=== PATIENT | male | born 1965 | race Caucasian/White ===

== ENCOUNTER 2021-12-18 17:24 | Observation (INO) ==
[2021-12-18] MEDS ORDERED: morphine 2 MG/ML VIAL IV ONE (18:01)
[2021-12-18] MEDS ORDERED: ONDANSETRON 4 MG/2 ML VIAL IV ONE (18:01)
[2021-12-18] MEDS ORDERED: PHENobarb/HYOSCY/ATROPINE/SCOP 1 DOSE BOTTLE PO ONE (18:01)
--- NOTE | 2021-12-18 18:01 | Emergency Department Note ---
Abdominal Pain HPI General Chief Complaint: Abdominal Pain Stated Complaint: gall bladder Time Seen by Provider: 12/18/21 17:29 Source: patient Mode of arrival: ambulatory Limitations: no limitations History of Present Illness HPI Narrative: Narrative: 55-year-old male presents the ER to be evaluated for right upper quadrant pain. He states he saw his primary care provider Dr. Plunkett about 3 weeks ago for this. He had an ultrasound that said his gallbladder was packed with sludge and he needed urgent surgery. Referral was placed to Dr. Turner but he never had any follow-up or reach out from the office. He has been waiting for a referral. He said today the pain got so bad that he decided to come in for further evaluation. He has had intermittent vomiting sometimes while he is asleep. He states he has bad reflux and has had burning in his chest. He denies chest pressure. He has a history of myocardial bridging surgery done at [place] via an open heart procedure. He has a pacemaker in place. He has a history of GERD, complex regional pain syndrome and hypertension. He also has a history of anxiety. He takes no meds currently. He denies fever, chills, body aches, chest pain, chest pressure and is mainly here for right upper quadrant abdominal pain and reflux. Related Data Home Medications Medication Instructions Recorded Confirmed No Known Home Meds 12/18/21 12/18/21 Allergies Allergy/AdvReac Type Severity Reaction Status Date / Time No Known Drug Allergies Allergy Verified 12/18/21 17:28 Review of Systems ROS ROS Narrative: Narrative: All systems ED: reviewed and negative except as stated. [facility] Narrative Patient History Narrative: Narrative: Medical/Surgical/Family History All Active Problems (Updated 12/18/21 @ 19:41 by Luis Fernando Acuña PA-C) Cholecystitis (Acute) Complex regional pain syndrome i of left upper limb (Acute) Chronic pain (Chronic) GERD (gastroesophageal reflux disease) (Chronic) Obesity (Chronic) Hypertension (Chronic) Anxiety (Chronic) Presence of cardiac pacemaker (Chronic) Left shoulder pain (Chronic) Medical History Anxiety Chronic pain Complex regional pain syndrome i of left upper limb GERD (gastroesophageal reflux disease) Hypertension Left shoulder pain Obesity Presence of cardiac pacemaker Surgical History History of appendectomy History of arthroplasty of left shoulder (~09/02/21) History of heart surgery History of neck surgery anterior cervical decompression & fusion History of rotator cuff surgery and biceps tendon repair - left Family History Father Osteoarthritis Osteoporosis Rheumatoid arthritis Heart attack Alcohol abuse Chronic pain Mother Anemia Chronic pain Hypertension Brother Alcohol abuse Chronic pain Social History Smoking Status: Former smoker Alcohol Intake Frequency: 2+ drinks per day Substance Use: does not use Exam Narrative Narrative: Narrative: Gen: No acute distress Eyes: PERRL, no conjunctival injection , and symmetrical lids. Sclerae non icteric HENMT: Normocephalic Atraumatic head, external nose and ears. Moist MM. CVS: +S1/S2, No murmurs or gallops. Radial pulses 2+ and equal bilat. No swelling RESP: Unlabored respiratory effort . Clear to auscultation bilaterally (CTAB). No noted wheezes rales or ronchi. GI: Right upper quadrant tenderness with guarding, mild distention, no focal peritonitis Skin: Warm, Dry . No rashes or lesions . Cap refill less than 2. Psych: Awake, Alert, & Oriented (AAO) x3. Appropriate mood and affect . General Limitations: no limitations Course Vital Signs Vital signs: Vital Signs Temperature 98.0 F 12/18/21 17:25 Pulse Rate 103 H 12/18/21 17:25 Respiratory Rate 16 12/18/21 17:25 Blood Pressure 160/100 12/18/21 17:25 Pulse Oximetry (%) 98 12/18/21 17:25 Oxygen Delivery Method 12/18/21 17:25 Temperature 98.0 F 12/18/21 17:25 Pulse Rate 104 H 12/18/21 17:57 Respiratory Rate 16 12/18/21 17:25 Blood Pressure 154/103 12/18/21 17:44 Pulse Oximetry (%) 96 12/18/21 17:57 Oxygen Delivery Method 12/18/21 17:25 MDM MDM Narrative Medical decision making narrative: Narrative: Patient has right upper quadrant pain, history of significant gallstones. He will be evaluated with right upper quadrant ultrasound due to his burning chest he will receive an EKG, chest x-ray, troponin and GI cocktail. He will also be evaluated with CBC, CMP lipase. He will be given morphine for pain and zofran for nausea. CBC: Normal CMP: Slight renal insufficiency with creatinine of 1.3, slight elevated liver enzymes, no elevation of bilirubin. Lipase: normal Troponin: 0.03 Normal EKG: Atrial sensed ventricular paced rhythm at a rate of [address] or T wave abnormality to suggest acute ischemia. Chest x-ray: Normal chest x-ray as read by myself Gallbladder ultrasound: stones, none in neck, some thickening but assymentric, no ductal dilatation, Dense liver, visualized pancreas normal. Positive Pinto sign Reevaluation: Given the patient's right upper quadrant pain and positive Pinto sign Dr. Castro will be consulted to see if the patient is a candidate for surgery. He does have asymmetric gallbladder thickening and stones. No evidence of biliary obstruction. Dr. Castro: Will come down and evaluate the patient. Dr. Castro will admit for surgery tomorrow Discharge Plan Patient/Caregiver Discharge Instructions Pt seen by CATTLE KILLER/PA only: Yes Clinical Impression: Cholecystitis Patient Disposition: Xfer As Inpt ([facility]) Follow up with: Harsha Plunkett DO [Primary Care Provider] -
[2021-12-18 18:33] LABS: Basophils # (Auto) 0.07 K/mcL (0.00-0.30); Eosinophils # (Auto) 0.16 K/mcL (0.00-0.70); Eosinophils % (Auto) 2.3 % (0.0-7.0); Hemoglobin 15.5 g/dL (13.7-17.5); Lymphocytes # (Auto) 1.94 K/mcL (1.50-4.80); Lymphocytes % (Auto) 28.1 % (15.5-49.0); Mean Cell Volume 93.2 fL (80.0-100.0); Mean Corpuscular HGB Conc 34.4 g/dL (31.0-36.0); Mean Platelet Volume 9.5 fL (7.4-10.4); Monocytes # (Auto) 0.64 K/mcL (0.10-0.90); Monocytes % (Auto) 9.3 % (1.0-12.0); Neutrophils % (Auto) 58.9 % (38.0-78.0); Platelet Count 206 K/mcL (140-440); RBC 4.83 M/mcL (4.63-6.08); Red Cell Distribution Width 12.8 % (11.5-14.5); WBC 6.9 K/mcL (4.5-11.0)
[2021-12-18 18:58] LABS: ALT/SGPT 83 U/L (<40); AST/SGOT 50 U/L (<40); Albumin 4.6 gm/dL (3.2-5.2); Albumin/Globulin Ratio 1.5 (1.0-2.3); Alkaline Phosphatase 111 U/L (39-117); Bilirubin,Total 0.4 mg/dL (0.1-1.0); Blood Urea Nitrogen 14 mg/dL (6-20); Calcium 9.6 mg/dL (8.6-10.4); Carbon Dioxide 28 mmol/L (22-30); Chloride 100 mmol/L (96-108); Globulin 3.1 gm/dL (2.2-3.7); Glomerular Filtration Rate 61; Glucose 111 mg/dL (70-105)
[2021-12-18] MEDS: morphine 2 MG/ML VIAL IV PRN ×2 (19:33→20:57)
[2021-12-18] MEDS ORDERED: ONDANSETRON 4 MG/2 ML VIAL IV PRN (19:51)
--- NOTE | 2021-12-18 19:51 | General Surg History&Physical ---
HPI History of Present Illness Patient information: Note initiated : 12/18/21 at 7:46 pm Service Date, if different from initiated Date: [] Patient: Harshal Martins a 55 y/o M admitted on for gall bladder. Chief Complaint: [] Chief complaint: Right upper quadrant abdominal pain History of present illness: Mr. Martins is a 55 year old M who was diagnosed with cholecystitis 4 years ago, patient tried diet modification and was rather successful other than he did have multiple episodes of nausea and epigastric abdominal pain following different fatty and greasy meals. It progressed over the last few months until he was seen by his primary care physician once again to have a follow-up on his cholelithiasis and get a referral for general surgery evaluation. He was given a general surgery evaluation, he had a right upper quadrant ultrasound which was read as cholelithiasis without evidence of cholecystitis. Today he had recurrence of the pain which is lasted greater than 6 hours, is gradually increasing in severity, he has had extensive nausea with emesis today and is not able to keep down any foods. Therefore he came to the emergency room where work-up was significant for normal white count, normal T bili, right upper quadrant ultrasound with cholelithiasis and physical exam significant for a Pinto sign. Review of Systems Review of systems: All systems reviewed, negative other than above PFSH PFSH All Active Problems Cholecystitis (Acute) Complex regional pain syndrome i of left upper limb (Acute) Chronic pain (Chronic) GERD (gastroesophageal reflux disease) (Chronic) Obesity (Chronic) Hypertension (Chronic) Anxiety (Chronic) Presence of cardiac pacemaker (Chronic) Left shoulder pain (Chronic) Medical History Anxiety Chronic pain Complex regional pain syndrome i of left upper limb GERD (gastroesophageal reflux disease) Hypertension Left shoulder pain Obesity Presence of cardiac pacemaker Surgical History History of appendectomy History of arthroplasty of left shoulder (~09/02/21) History of heart surgery History of neck surgery anterior cervical decompression & fusion History of rotator cuff surgery and biceps tendon repair - left Family History Father Osteoarthritis Osteoporosis Rheumatoid arthritis Heart attack Alcohol abuse Chronic pain Mother Anemia Chronic pain Hypertension Brother Alcohol abuse Chronic pain Social History marital status: single education level: high school occupational status: employed occupation: [employer] smoking status: Former smoker alcohol intake frequency: 2+ drinks per day substance use type: does not use MEDS/ALLERGIES Home Medications and Allergies Home Medications Medication Instructions Recorded Confirmed Type No Known Home Meds 12/18/21 12/18/21 History Allergies Allergy/AdvReac Type Severity Reaction Status Date / Time No Known Drug Allergies Allergy Verified 12/18/21 17:28 Physical Examination Vital Signs Vital signs: Temp Pulse Resp BP Pulse Ox O2 Del Method 98.0 F 96 H 16 148/104 96 12/18/21 17:25 12/18/21 19:32 12/18/21 17:25 12/18/21 19:32 12/18/21 19:32 12/18/21 17:25 General physical appearance General physical exam: well developed, well nourished and no distress Eyes Eye exam: PERRL and normal ocular movement ENT ENT exam: normal pinna, normal nares, normal mucosa, no hearing loss and no congestion Head Head exam IM: Present atraumatic and normocephalic Neck Neck exam: no masses, no bruits, trachea midline, no lymphadenopathy and no venous distension Cardiovascular Cardiovascular exam IM: Present normal rate and rhythm Respiratory Respiratory exam: normal expansion, normal respiratory effort, clear to percussion and clear to auscultation Abdomen Abdomen: Present soft, tender (Tender in the right upper quadrant with positive Pinto sign), bowel sounds and distended; Absent surgical scars, masses, guarding or rebound Hernia: Present none Genitourinary Genitourinary (Male): Present normal penis with no external lesions Rectum Rectum: Present normal sphincter tone, no hemorrhoids, no tenderness, no masses and no bleeding Integumentary Integumentary: Present no rash, no growths and no abnormal pigmentation Neurologic Neurologic: Present normal coordination and normal sensation Musculoskeletal Musculoskeletal: Present normal gait and normal posture Psychiatric Psychiatric: Present oriented to time, oriented to person, oriented to place, speech is normal and memory intact Results Labs Result diagrams: 12/18/21 18:04 12/18/21 18:04 Labs: Abnormal lab results 12/18/21 Range/Units 18:04 Creatinine 1.3 H (0.7-1.2) mg/dL Glucose 111 H (70-105) mg/dL AST 50 H (<40) U/L ALT 83 H (<40) U/L Diabetes panel 12/18/21 Range/Units 18:04 Sodium 138 (133-145) mmol/L Potassium 3.9 (3.3-5.1) mmol/L Chloride 100 (96-108) mmol/L Carbon Dioxide 28 (22-30) mmol/L BUN 14 (6-20) mg/dL Creatinine 1.3 H (0.7-1.2) mg/dL Glucose 111 H (70-105) mg/dL Calcium 9.6 (8.6-10.4) mg/dL AST 50 H (<40) U/L ALT 83 H (<40) U/L Alkaline Phosphatase 111 (39-117) U/L Total Protein 7.7 (5.9-8.4) gm/dL Albumin 4.6 (3.2-5.2) gm/dL Calcium panel 12/18/21 Range/Units 18:04 Calcium 9.6 (8.6-10.4) mg/dL Albumin 4.6 (3.2-5.2) gm/dL Pituitary panel 12/18/21 Range/Units 18:04 Sodium 138 (133-145) mmol/L Potassium 3.9 (3.3-5.1) mmol/L Chloride 100 (96-108) mmol/L Carbon Dioxide 28 (22-30) mmol/L BUN 14 (6-20) mg/dL Creatinine 1.3 H (0.7-1.2) mg/dL Glucose 111 H (70-105) mg/dL Calcium 9.6 (8.6-10.4) mg/dL Adrenal panel 12/18/21 Range/Units 18:04 Sodium 138 (133-145) mmol/L Potassium 3.9 (3.3-5.1) mmol/L Chloride 100 (96-108) mmol/L Carbon Dioxide 28 (22-30) mmol/L BUN 14 (6-20) mg/dL Creatinine 1.3 H (0.7-1.2) mg/dL Glucose 111 H (70-105) mg/dL Calcium 9.6 (8.6-10.4) mg/dL Total Bilirubin 0.4 (0.1-1.0) mg/dL AST 50 H (<40) U/L ALT 83 H (<40) U/L Alkaline Phosphatase 111 (39-117) U/L Total Protein 7.7 (5.9-8.4) gm/dL Albumin 4.6 (3.2-5.2) gm/dL All other labs normal. Imaging Additional studies: Prior work-up reviewed extensively. A/P Assessment and plan (1) Cholecystitis: Plan: This is a pleasant 55-year-old gentleman who presents with signs symptoms consistent with acute cholecystitis. Patient has extensive nausea and vomiting, he has a right upper quadrant Pinto sign consistent with cholelithiasis. Risk, benefits, alternatives to treatment discussed with patient at length including details of the procedure and what to expect pre and post. He verbalizes understanding, all of his questions are answered and he desires to continue with treatment. Plan: Admit, n.p.o., IV antibiotics. To the operating room when available for robotic assisted cholecystectomy. Anticipate 2 to 3-day admission. Status: Acute Time Spent With Patient Time: Total time spent is greater than 50% in coordination of care (as documented) at patient's floor/unit and/or counseling patient:
[2021-12-18] MEDS: LACTATED RINGERS 1,000 ML IV SCH (20:22)
[2021-12-18 20:24] LABS: Appearance,Urine Clear (Clear); Bilirubin,Urine Negative (Negative); Color,Urine Yellow; Culture Indicated,Urine No; Glucose,Urine (UA) Negative (Negative); Ketones,Urine Negative (Negative); Leukocyte Esterase,Urine Negative /uL (Negative); Mucus,Urine FEW /hpf; Nitrate,Urine Negative (Negative); Specific Gravity,Urine 1.025 (1.000-1.035); Urine Blood Negative ery/mcL (Negative); Urine RBC 0 /hpf (0-3); Urine Squamous Epithelial Cell < 1 /hpf (0-4); Urine WBC < 1 /hpf (0-4); Urobilinogen,Urine Normal
[2021-12-18] MEDS ORDERED: PIPERACILLIN SODIUM/TAZOBACTAM 3.375 GM VIAL IV ONE (20:43)
[2021-12-18] MEDS: PIPERACILLIN SODIUM/TAZOBACTAM 3.375 GM in DEXTROSE 5% IN WATER 50 ML IV SCH (20:44)
[2021-12-18] MEDS: 0.9 % SODIUM CHLORIDE 10 ML SYRINGE IV SCH (21:42)
[2021-12-18] MEDS: HYDROmorphone 0.5 MG/0.5 ML SYRINGE IV PRN (22:09)
[2021-12-18] MEDS ORDERED: HYDROmorphone 0.5 MG/0.5 ML SYRINGE ONE (22:19)
[2021-12-19] MEDS: HYDROmorphone 0.5 MG/0.5 ML SYRINGE IV PRN ×7 (00:26→21:17)
[2021-12-19] MEDS ORDERED: HYDROmorphone 0.5 MG/0.5 ML SYRINGE ONE ×2 (00:37→04:11)
[2021-12-19] MEDS: PIPERACILLIN SODIUM/TAZOBACTAM 3.375 GM in DEXTROSE 5% IN WATER 50 ML IV SCH ×5 (02:06→23:55)
--- NOTE | 2021-12-19 03:52 | XRay Report ---
CLINICAL INFORMATION: Shortness of breath COMPARISON: 03/12/2020 TECHNIQUE: Portable FINDINGS: Pacemaker leads in stable satisfactory position. The heart size, mediastinum and pulmonary vessels are unremarkable. The lungs are clear. There are no effusions. The bones and soft tissues are within normal limits. IMPRESSION: Normal chest. Interpreted and Authenticated by: Timothy Flores 12/19/21
--- NOTE | 2021-12-19 04:01 | Ultrasound Report ---
. CLINICAL INFORMATION: COMPARISON: None. FINDINGS: Liver is normal in size and diffusely hyperechoic compatible with fatty change. No focal hepatic lesions. Multiple small stones are present in the gallbladder. Mild asymmetric gallbladder wall thickening-4 mm. Common bile duct is normal at 5 mm. The pancreas not visualized. No free fluid. IMPRESSION: Multiple gallstones with asymmetric gallbladder wall thickening suggestive, but not diagnostic, of cholecystitis Hyperechoic liver compatible with fatty change or other diffuse hepatocellular process Interpreted and Authenticated by: Timothy Flores 12/19/21
[2021-12-19] MEDS: LACTATED RINGERS 1,000 ML IV SCH ×3 (04:02→18:57)
[2021-12-19] MEDS: 0.9 % SODIUM CHLORIDE 10 ML SYRINGE IV SCH ×2 (04:09→14:08)
[2021-12-19] MEDS ORDERED: MAGNESIUM SULFATE 2 GM/50 ML BAG IV ONE (13:15)
[2021-12-19] MEDS ORDERED: METOPROLOL TARTRATE 5 MG/5 ML VIAL IV ONE (13:15)
[2021-12-19] MEDS ORDERED: SUGAMMADEX SODIUM 200 MG/2 ML VIAL IV ONE (13:15)
[2021-12-19] MEDS ORDERED: LIDOCAINE HCL/PF 100 MG/5 ML SYRINGE IV ONE (13:15)
[2021-12-19] MEDS ORDERED: INDOCYANINE GREEN 25 MG VIAL IV ONE (13:15)
[2021-12-19] MEDS ORDERED: ONDANSETRON 4 MG/2 ML VIAL ONE (13:15)
[2021-12-19] MEDS ORDERED: PROPOFOL 200 MG/20 ML VIAL IV ONE (13:15)
[2021-12-19] MEDS ORDERED: DEXAMETHASONE 10 MG/ML VIAL ONE (13:15)
[2021-12-19] MEDS ORDERED: fentaNYL 100 MCG/2 ML VIAL IV ONE (13:15)
[2021-12-19] MEDS ORDERED: ROCURONIUM 10 MG/ML ML IV ONE (13:15)
[2021-12-19] MEDS ORDERED: KETAMINE 50 MG/ML Syringe (ANEST) IV ONE (13:15)
[2021-12-19] MEDS ORDERED: MIDAZOLAM 2 MG/2 ML VIAL ONE (13:15)
[2021-12-19] MEDS ORDERED: GLYCOPYRROLATE 0.2 MG/ML VIAL IV ONE (13:15)
[2021-12-19] MEDS ORDERED: LIDOCAINE 1% 20 ML, BUPIVACAINE W/EPI 0.5% 20 ML SQ ONE (13:41)
[2021-12-19] MEDS ORDERED: ACETAMINOPHEN 1,000 MG/100 ML BAG IV ONE (13:50)
[2021-12-19] MEDS ORDERED: NALOXONE HCL 0.4 MG/ML VIAL IV PRN (13:50)
[2021-12-19] MEDS ORDERED: KETOROLAC 30 MG/ML VIAL IV PRN (13:50)
[2021-12-19] MEDS ORDERED: METOPROLOL TARTRATE 5 MG/5 ML VIAL IV PRN (13:50)
[2021-12-19] MEDS ORDERED: PROMETHAZINE 25 MG/ML VIAL IV PRN (13:50)
[2021-12-19] MEDS ORDERED: METHOCARBAMOL 1,000 MG/10 ML VIAL IV PRN (13:50)
[2021-12-19] MEDS ORDERED: MEPERIDINE 25 MG/ML VIAL IV PRN (13:50)
[2021-12-19] MEDS ORDERED: ONDANSETRON 4 MG/2 ML VIAL IV PRN (13:50)
[2021-12-19] MEDS ORDERED: IPRATROPIUM/ALBUTEROL 3 ML AMPUL.NEB NEB PRN (13:50)
[2021-12-19] MEDS ORDERED: METOCLOPRAMIDE 10 MG/2 ML VIAL IV PRN (13:50)
[2021-12-19] MEDS ORDERED: LABETALOL 5 MG/ML ML IV PRN (13:50)
[2021-12-19] MEDS ORDERED: LACTATED RINGERS 1,000 ML IV SCH (14:00)
--- NOTE | 2021-12-19 14:09 | Operative Note ---
Brief Operative Note Date of procedure: 12/19/21 Pre-op diagnosis: Acute cholecystitis Post-op diagnosis: same Procedure: Robotic assisted cholecystectomy Findings: Acute cholecystitis Complications: none Surgeon: Melchor Castro Estimated blood loss (cc): 25 Specimens Removed/Pathology: other (Gallbladder and contents) Condition: stable Disposition: PACU Operative Note Operative Note: After risk benefits and alternatives to the procedure were discussed with the patient at length he verbalized understanding and desire to continue with the procedure. Patient was taken main operating room placed upon the operative table. General anesthesia was induced over endotracheal tube. Patient was prepped and draped in the standard sterile surgical fashion. Surgical timeout was taken to verify patient and procedure being performed. 1% lidocaine half percent Marcaine was used for local anesthesia throughout the case. The abdomen was entered under direct vision using a 12 mm Optiview trocar through a right upper quadrant incision. The abdominal cavity was insufflated with carbon oxide and visual inspection revealed no injuries. A 8 mm supraumbilical, a 8 mm left upper quadrant trocar and an additional 8 mm right upper quadrant trocar was placed under direct vision. Patient was placed in a head up right side up position. The da Lucina robot was docked in the standard fashion attention was turned to the gallbladder large amount of omental adhesions to the gallbladder, these were carefully taken down with bipolar dissection. The peritoneal attachments were taken down to pedunculated the gallbladder in standard fashion. The triangle CORRINE was then carefully dissected free with blunt dissection and verified with firefly cholangiography. Once a critical view of safety was clearly identified the cystic duct and cystic artery were surgically clipped and transected. The gallbladder was removed from the gallbladder fossa using electrocautery this placed in Endo Catch bag removed through the 12mm incision and passed off the field for surgical pathology. Attention was turned back to the gallbladder fossa which was hemostatic. The 12mm fascial defect was then reapproximated with a interrupted 0 Vicryl suture. CO2 and trochars were removed from the abdominal cavity under direct vision. Trocar sites were inspected for hemostasis. Skin edges were closed with interrupted 4 Monocryl sutures skin glue dressings were applied. Patient was then awakened from anesthesia transported postanesthesia care unit awake alert in good condition.
[2021-12-19] MEDS: fentaNYL 100 MCG/2 ML VIAL IV PRN ×2 (14:43→14:46)
[2021-12-19] MEDS ORDERED: ACETAMINOPHEN 325 MG TABLET PO PRN (21:08)
[2021-12-19] MEDS ORDERED: IBUPROFEN 600 MG TABLET PO PRN (21:08)
[2021-12-19] MEDS: SUCRETS LOZENGE PO PRN (21:34)
[2021-12-19] MEDS ORDERED: SUCRETS LOZENGE PO ONE (21:44)
[2021-12-19] MEDS: oxyCODONE HCL 5 MG TABLET PO PRN (22:12)
[2021-12-19] MEDS ORDERED: oxyCODONE HCL 5 MG TABLET PO ONE (22:23)
[2021-12-20] MEDS: HYDROmorphone 0.5 MG/0.5 ML SYRINGE IV PRN (00:01)
[2021-12-20] MEDS: SUCRETS LOZENGE PO PRN (00:01)
[2021-12-20] MEDS ORDERED: SUCRETS LOZENGE PO ONE (00:12)
[2021-12-20] MEDS: oxyCODONE HCL 5 MG TABLET PO PRN ×3 (02:42→09:24)
[2021-12-20] MEDS ORDERED: oxyCODONE HCL 5 MG TABLET PO ONE ×2 (02:52→06:42)
[2021-12-20] MEDS: PIPERACILLIN SODIUM/TAZOBACTAM 3.375 GM in DEXTROSE 5% IN WATER 50 ML IV SCH (05:29)
--- NOTE | 2021-12-20 06:58 | EKG ---
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
--- NOTE | 2021-12-20 07:06 | Discharge Summary ---
Discharge Provider Provider IMPORTANT FOLLOW-UP INFORMATION FOR PCP: Patient information: Note initiated : 12/20/21 at 7:05 am Service Date, if different from initiated Date: [] Patient: Harshal Martins 55 y/o M admitted on 12/18/21 for gall bladder. Chief Complaint: [] Date of admission: 12/18/21 21:13 Discharge date: 12/20/21 Primary care physician: Harsha Plunkett DO Consults: 12/18/21 Consult to Physician [CONS] Stat Comment: Consulting Provider: Melchor Castro Reason For Exam: Physician to Consult COURSE Hospital Course Hospital course: Patient admitted for acute cholecystitis, was started on antibiotics and taken to the OR the next morning. He underwent a robotic assisted cholecystectomy. This morning he is tolerating diet, his pain is controlled. Pain is better than when he presented to the hospital and he is ready for discharge. Discharge diagnosis: Acute cholecystitis, status postcholecystectomy Time Spent with Patient Time attestation: Total time spent providing and/or coordinating discharge services: Time spent: Less than 30 minutes Physical Examination Vital Signs Vital signs: Temp Pulse Resp BP Pulse Ox O2 Del Method O2 Flow Rate 97.1 F 75 18 118/72 94 5 12/20/21 03:34 12/20/21 03:34 12/20/21 03:34 12/20/21 03:34 12/20/21 03:34 12/20/21 03:34 12/19/21 14:31 Discharge Plan Patient/Caregiver Discharge Instructions Activity: increase activity as tolerated Diet: Regular Diet Activity Restrictions/Additional Instructions: Resume normal activity as tolerated, no weightlifting restrictions. Patient may resume showering starting tonight. Follow-up with me in clinic in 2 to 3 weeks. Prescriptions: New ibuprofen 800 mg tablet 800 mg PO TID PRN (Reason: pain) Qty: 90 0RF acetaminophen [Tylenol 8 Hour] 650 mg tablet extended release 650 mg PO Q8H PRN (Reason: pain) Qty: 90 0RF oxycodone 5 mg tablet 5 mg PO Q6H PRN (Reason: pain) Qty: 5 0RF Follow Up Plan Follow up with: Melchor Castro MD [Physician] - Harsha Plunkett DO [Primary Care Provider] - Patient Disposition: Home, Self-Care Discharge Orders: Discharge Order (Routine); Ordered 12/20/21 Ordered By: Melchor Castro Pending Pending Pending: Resuscitation Status Resuscitate (Full Code) Diet Regular Diet Start Dorothea Sep 8 140 Hydromorphone HCl (Hydromorphone 0.5 Mg/0.5 Ml Syringe) 0.5 mg IV Q2HP PRN; Protocol PRN Reason: Per Pain Protocol Last Admin: 12/20/21 00:01 Dose: 0.5 mg Documented By: Admin: 12/19/21 21:17 Dose: 0.5 mg Documented By: Admin: 12/19/21 18:56 Dose: 0.5 mg Documented By: Admin: 12/19/21 07:22 Dose: 0.5 mg Documented By: Admin: 12/19/21 04:02 Dose: 0.5 mg Documented By: Admin: 12/19/21 00:26 Dose: 0.5 mg Documented By: Admin: 12/18/21 22:09 Dose: 0.5 mg Documented By: LALITA Piperacillin Sod/Tazobactam (Sod 3.375 gm/ Dextrose) 50 mls @ 100 mls/hr IV Q6H TRUE; Protocol Last Infusion: 12/20/21 06:05 Dose: 0 mls/hr Documented By: Admin: 12/20/21 05:29 Dose: 100 mls/hr Documented By: Infusion: 12/20/21 00:51 Dose: 0 mls/hr Documented By: Admin: 12/19/21 23:55 Dose: 100 mls/hr Documented By: Infusion: 12/19/21 18:53 Dose: 0 mls/hr Documented By: Admin: 12/19/21 18:18 Dose: 100 mls/hr Documented By: Infusion: 12/19/21 13:15 Dose: 0 mls/hr Documented By: Admin: 12/19/21 12:48 Dose: 100 mls/hr Documented By: [email or web address] Infusion: 12/19/21 08:50 Dose: 0 mls/hr Documented By: Admin: 12/19/21 08:14 Dose: 100 mls/hr Documented By: Infusion: 12/19/21 02:37 Dose: 0 mls/hr Documented By: Admin: 12/19/21 02:06 Dose: 100 mls/hr Documented By: Infusion: 12/18/21 21:16 Dose: 0 mls/hr Documented By: Admin: 12/18/21 20:44 Dose: 100 mls/hr Documented By: KAREN Oxycodone HCl (Oxycodone Hcl 5 Mg Tablet) 5 mg PO Q4HP PRN; Protocol PRN Reason: Per Pain Protocol Last Admin: 12/20/21 06:32 Dose: 5 mg Documented By: Admin: 12/20/21 02:42 Dose: 5 mg Documented By: Admin: 12/19/21 22:12 Dose: 5 mg Documented By: ELVER Shift Summary 12/20/21 04:24 Shift Summary by Thalia Villagran Primary Diagnosis: Acute cholecystitis Registration Status: IP Date of Surgery (if applicable): 12/19/21 robotic assisted cholecystectomy Pertinent Medical Dx/Issue(s): GERD, HTN, left shoulder pain, pacemaker Med management (antibiotics, diuretics, BP): Zosyn Q6H scheduled Skin/Wound Care: 4 lap sites to abd. Small scabs to left ankle open to air. Vital Signs with Trends: VSS on RA O2, liter flow/saturations: RA Pain management (acute vs. chronic): Dilaudid 0.5mg Q2HP prn, roxicodone Q 4H Lab/Rad (abnormals, trends): Neuro/Mental Status: A&Ox4 Urinary Elimination Device: Void via BR, urinal Urinary output greater than 30mL/hr? Yes Date of last BM: 12/18/21 Lines/Tubes: New SL to bilateral hands Activity: Up ad juliana Discharge Plan (needs, disposition, etc): Pt needs a ride home on discharge Initialized on 12/20/21 04:24 - END OF NOTE
== END 2021-12-20 09:25 | disposition home or self-care (01) ==
LOC: ED 17:24 → INTOOBSV 21:13 → MEDSUR 21:13
PROVIDERS: ADMIT Surgery; ATTEND Surgery